=== PATIENT | female | born 1965 | race American Indian/Alaskan Native ===

== ENCOUNTER 2020-03-19 08:09 | Outpatient (CLI) | payer OTHER ==
--- NOTE | 2020-03-19 16:31 | Treadmill Report ---
TREADMILL STRESS TEST ORDERING PHYSICIAN: Dr. Beyer. REASON FOR STUDY: Chest pain. Baseline EKG is sinus rhythm with no ST abnormalities. Baseline heart rate was 70. Baseline blood pressure 139/83. The patient exercised on Don protocol for 10 minutes 30 seconds. Peak heart rate is 165, which is 100% max predicted heart rate. Peak blood pressure 175/96. The patient had no EKG changes or arrhythmia noted. The patient stopped secondary to shortness of breath, but no chest pain. SUMMARY: 1. Negative treadmill EKG. 2. Good exercise capacity 10 minutes 30 seconds Don protocol. 3. No exaggerated BP response to exercise. 4. There was no EKG change or arrhythmia to suggest ischemia. No chest pain with stress test. JOB# [id number] KAYDEN/ELIEZER
== END 2020-03-19 08:10 | disposition home or self-care (01) ==
LOC: CARD 08:09
PROVIDERS: ATTEND Internal Medicine Cardiovascular Disease
DX: R07.89 Other chest pain (principal); E78.1 Pure hyperglyceridemia
CPT/HCPCS: 93017